=== PATIENT | female | born 1955 | race Caucasian/White ===

== ENCOUNTER 2024-01-22 12:43 | Emergency (ER) | payer OTHER ==
--- NOTE | 2024-01-22 13:20 | EDPHYS ---
Physician Documentation [facility] Name: Shaina Mora Age: 68 yrs Sex: Female : 1955 Arrival Date: 01/22/2024 Time: 12:43 Bed Treatment Private MD: ED Physician Manuel Chow HPI: 01/21 13:21 This 68 yrs old Female presents to ER via Ambulatory with complaints of Wound Infection sb4 - neck and leg. 13:23 patient reports a wound on her left posterior neck that has been there for a few weeks. sb4 her daughter states that she has been picking at it a lot and it appears to have become infected. she does have a history of MRSA, anxiety/depression, and possible excoriation disorder. states she has not had her zoloft in 2 weeks because the pharmacy has been closed. denies any known fever or chills. Historical: - Allergies: 13:10 NO NARCOTIC MEDS; ld1 - PMHx: 13:10 Anxiety; Depressive disorder; Mitral valve prolapse; ld1 13:11 MRSA; ld1 - Immunization history:: Adult Immunizations up to date. - Infectious Disease History:: MRSA (w/in 1 year), . - Social history:: Smoking status: Patient/guardian denies using tobacco, the patient reports quitting approximately 5 years ago, Patient/guardian denies using alcohol. ROS: 13:23 Constitutional: Negative for fever, chills, and weight loss, sb4 13:23 Skin: Positive for cellulitis, of the left posterior aspect of neck, 13:23 All other systems are negative, Exam: 13:23 Constitutional: This is a well developed, well nourished patient who is awake, alert, sb4 and in no acute distress. Head/Face: Normocephalic, atraumatic. Eyes: Extra-ocular motions intact. Periorbital areas with no swelling, redness, or edema. ENT: Mucous membranes moist. 13:23 Skin: large superficial open wound left posterior neck with mild purulence and surrounding cellulitis. MDM: 13:12 Patient medically screened. sb4 13:23 Data reviewed: vital signs, nurses notes, and as a result, I will discharge patient. sb4 Counseling: I had a detailed discussion with the patient and/or guardian regarding the historical points, exam findings, and any diagnostic results supporting the discharge/admit diagnosis, the need for outpatient follow up, for definitive care, to return to the emergency department if symptoms worsen or persist or if there are any questions or concerns that arise at home. 01/21 13:19 Order name: Wound Care; Complete Time: 14:04 sb4 01/21 13:19 Order name: Wound dressing; Complete Time: 14:04 sb4 Administered Medications: 13:50 Drug: Clindamycin PO 300 mg PO once Route: PO; hb Disposition: 14:36 I was immediately available on-site in the Emergency Department for consultation in the ms3 care of the patient. Disposition Summary: 01/22/24 13:20 Discharge Ordered Notes: Location: Home sb4 Problem: an ongoing problem sb4 Symptoms: are unchanged sb4 Condition: Stable sb4 Diagnosis - Cellulitis of neck sb4 - Excoriation (skin-picking) disorder sb4 Followup: sb4 - With: Emergency Department - When: As needed - Reason: Fever > 102 F, Worsening of condition Discharge Instructions: - Discharge Summary Sheet sb4 - Cellulitis, Adult sb4 - Wound Care, Adult sb4 - Skin-Picking Disorder sb4 Forms: - Antibiotic Education sb4 - Patient Portal Instructions sb4 - Leadership Thank You Letter sb4 Prescriptions: - Clindamycin HCl 300 mg Oral Capsule - take 1 capsule ORAL route every 6 hours for 10 days; 40 capsule; Refills: 0, sb4 Product Selection Permitted Signatures: Marilia Noe RN RN Manuel Chow DO DO dc3 Hailee Chow RN RN ld1 Lissy Peraza PA-C PA-C sb4 Corrections: (The following items were deleted from the chart) 13:25 13:10 Infectious Disease History: Denies. ld1 ld1
--- NOTE | 2024-01-22 13:20 | ER ---
Nurse's Notes [facility] Name: Shaina Mora Age: 68 yrs Sex: Female : 1955 Arrival Date: 01/22/2024 Time: 12:43 Bed Treatment Private MD: Diagnosis: Cellulitis of neck;Excoriation (skin-picking) disorder Presentation: 01/21 13:09 Chief complaint: Patient states: Wound to back of neck and WEI legs. "I have a skin ld1 picking disorder.". Coronavirus screen: At this time, the client does not indicate any symptoms associated with coronavirus-19. Ebola Screen: No symptoms or risks identified at this time. Risk Assessment: Do you want to hurt yourself or someone else? Patient reports no desire to harm self or others. Onset of symptoms was January 22, 2024. 13:09 Method Of Arrival: Ambulatory ld1 13:09 Acuity: REID 3 ld1 Triage Assessment: 13:11 General: Appears in no apparent distress. comfortable, Behavior is calm, cooperative, ld1 appropriate for age. Pain: Denies pain. EENT: No signs and/or symptoms were reported regarding the EENT system. Neuro: Level of Consciousness is awake, alert, obeys commands, Oriented to person, place, time, situation, Appropriate for age. Cardiovascular: Capillary refill < 3 seconds Patient's skin is warm and dry. Respiratory: Airway is patent Respiratory effort is even, unlabored. GI: Abdomen is flat, non-distended. : No signs and/or symptoms were reported regarding the genitourinary system. Derm: Wound noted base of the skull. Musculoskeletal: No signs and/or symptoms reported regarding the musculoskeletal system. Historical: - Allergies: 13:10 NO NARCOTIC MEDS; ld1 - PMHx: 13:10 Anxiety; Depressive disorder; Mitral valve prolapse; ld1 13:11 MRSA; ld1 - Immunization history:: Adult Immunizations up to date. - Infectious Disease History:: MRSA (w/in 1 year), . - Social history:: Smoking status: Patient/guardian denies using tobacco, the patient reports quitting approximately 5 years ago, Patient/guardian denies using alcohol. ED Course: 12:47 Patient arrived in ED. ra3 13:00 Lissy Per[facility]. sb4 13:00 Manuel Chow DO is Attending Physician. sb4 13:10 Triage completed. ld1 13:11 Arm band placed on right wrist. ld1 Administered Medications: 13:50 Drug: Clindamycin PO 300 mg PO once Route: PO; hb Outcome: 13:20 Discharge ordered by . sb4 14:04 Patient left the ED. hb Signatures: Marilia Noe RN RN Hailee Chow RN RN ld1 Lissy Peraza PA-C PA-C sb4 Elsi Howell ra3 Corrections: (The following items were deleted from the chart) 13:25 13:10 Infectious Disease History: Denies. ld1 ld1
== END 2024-01-22 14:04 | disposition home or self-care (01) ==
LOC: ER 12:43
DX: L03.221 Cellulitis of neck (principal); F42.4 Excoriation (skin-picking) disorder
CPT/HCPCS: 99282

== ENCOUNTER 2025-02-06 09:25 | Emergency (ER) | payer OTHER ==
--- NOTE | 2025-02-06 10:51 | RAD REPORT ---
EXAMINATION: Head C Spine Mpr Wo Con CLINICAL INDICATION: Female, 69 years old. fall, bruising, neck pain TECHNIQUE: Axial CT images from the skull base to the vertex without intravenous contrast. Axial CT i mages through the cervical spine were obtained without intravenous contrast. Sagittal and coronal reformatted images were created from the data set. Coronal and sagittal reformatted images were creat ed from the data set. One or more of the following dose reduction techniques were used: Automated exposure control, adjustment of the mA and/or kV according to patient size, and/or iterative reconstr uction. Unless otherwise specified, incidental findings do not require dedicated imaging follow-up. [id number]. COMPARISON: No prior exams FINDINGS: Head: INTRACRANIAL: No acute intracranial hemorrhage. No acute large vascular territory infarct. No hydroce phalus. No mass effect or midline shift. No significant white matter disease. VASCULATURE: No visualized abnormalities in the arteries or dural venous sinuses. SCALP/SKULL: No calvarial fracture identified. No acute soft tissue abnormality. SINUSES: The visualized paranasal sinuses are mostly clear. No significant mastoid fluid. Cervical spine: ALIGNMENT: The cervical spine has normal alignment without scoliosis or spondylolisthesis. BONE: Vertebral body heights are maintained. No aggressive osseous lesions. DEGENERATIVE: Multilevel cervical spondylosis with evidence of bilateral neural foraminal narrowing. No high grade central spinal stenosis. Neural foraminal narrowing is most pronounced on the left at 4 5 and on the right at C5-6. SOFT TISSUE: Scarring at the lung apices. IMPRESSION: No acute intracranial abnormality. No acute fracture or traumatic malalignment of the cervical spine.
[2025-02-06 10:57] LABS: Absolute Lymphocytes (CBC) 1.0 K/uL (0.7-4.9); Hematocrit 31.7 % (36.0-45.0); Hemoglobin 10.4 g/dL (12.0-15.0); MCH 26.5 pg (27.0-35.0); MCHC 32.9 g/dL (32.0-36.0); MCV 80.5 fL (80-100); MPV 8.9 fL (7.6-11.3); Nucleated RBC Absolute Count 0.0 (0-0); Nucleated Red Blood Cells % 0.1 % (0-0); RBC Red Blood Cell Count 3.94 M/uL (3.86-4.86); White Blood Count 9.30 thou/uL (4.3-10.9)
--- NOTE | 2025-02-06 11:01 | RAD REPORT ---
EXAMINATION: Abdomen Pelvis Wo Contrast CLINICAL INDICATION: Female, 69 years old.fall, back pain TECHNIQUE: CT abdomen and pelvis was performed, without IV contrast, as per department protocol. Axia l, sagittal and coronal reconstructions were obtained. One or more of the following dose reduction techniques were used: Automated exposure control, adjustment of the mA and/or kV according to the pat ient size, and/or iterative reconstruction. Unless otherwise specified, incidental findings do not require dedicated imaging follow-up. [id number]. IV CONTRAST: Not administered. COMPARISON: No prior exams FINDINGS: The lack of intravenous contrast limits the sensitivity of this exam for evaluation of solid visceral organs, vascular structures, and retroperitoneum. LOWER CHEST: No acute process identified.No significant pericardial effusion. Mild circumferential th ickening of the distal esophagus which could reflect esophagitis. Trace pericardial effusion. UPPER GI: No significant abnormality. LIVER: No significant focal abnormality. GALLBLADDER/BILE DUCTS: No biliary ductal dilatation.? PANCREAS: No mass, ductal dilation, or griffin-pancreatic fluid. SPLEEN: Unremarkable. ADRENALS: No adrenal masses. KIDNEYS AND URETERS: No hydronephrosis.No suspicious renal mass.No renal calculi.No ureteral calculi. ABDOMINAL AORTA AND OTHER VESSELS: Moderate atherosclerotic changes without aortic aneurysm. PERITONEUM: No abnormal free fluid. No free air. LYMPH NODES: No pathologic lymphadenopathy. ABDOMINAL WALL: Unremarkable SMALL BOWEL/COLON: Small bowel has normal course and caliber. No colonic wall thickening or pericolon ic inflammatory changes. Moderate formed stool burden. URINARY BLADDER: Underdistended but grossly unremarkable. REPRODUCTIVE ORGANS: Uterus surgically absent. No adnexal abnormality. MUSCULOSKELETAL: Screws traverse the right femoral neck. No acute fracture identified. Few versus chr onic left L4 transverse process fracture. ADDITIONAL FINDINGS: None. IMPRESSION: No evidence of significant trauma. No acute findings identified. Incidental findings as noted above.
[2025-02-06 11:07] LABS: Urine Microscopic Reflex YN NO UMIC
[2025-02-06 11:18] LABS: Anion Gap 7.8 mEq/L (5.0-15.0); BUN Blood Urea Nitrogen 22.0 mg/dL (7-18); Glucose Level 93.0 mg/dL (74-106)
[2025-02-06 11:20] LABS: Potassium 4.8 mEq/L (3.5-5.1)
[2025-02-06 11:43] LABS: PT Prothrombin Time 11.5 SECONDS (10-13.0); PTT, Activated Partial Thromb 28.7 SECONDS (27.2-37.4); Protime INR 1.02
--- NOTE | 2025-02-06 11:59 | EDPHYS ---
Physician Documentation [facility] Name: Shaina Mora Age: 69 yrs Sex: Female : 1955 Arrival Date: 02/06/2025 Time: 09:25 Bed 2 Private MD: ED Physician Lex Mancia HPI: 02/06 10:34 This 69 yrs old Female presents to ER via Wheelchair with complaints of Low Back Pain. rn 10:34 Patient and family report low back pain. Patient states low back pain worse since rn yesterday. Has chronic back pain. Has multiple falls and has had known herniated disks in the past. Patient states he fell about a week ago striking head. Does not report immediate back pain following that fall. Pain did not worsen until yesterday. No bowel or bladder issues. No fever or chills.. Historical: - Allergies: 10:12 NO NARCOTIC MEDS; dd2 - PMHx: 10:12 Anxiety; depressive disorder; mitral valve prolapse; MRSA; Diverticulitis; SYSTEMIC dd2 LUPUS; Osteoporosis; Hypothyroidism; DRUG USE; - PSHx: 10:12 Thyroidectomy; BLADDER SUSPENSION; dd2 - Immunization history:: Adult Immunizations unknown. - Infectious Disease History:: Denies. - Social history:: Smoking status: Patient denies any tobacco usage or history of. - Family history:: not pertinent. - Hospitalizations: : No recent hospitalization is reported. ROS: 10:34 Constitutional: Negative for fever, chills, and weight loss, Neck: Negative for injury, rn pain, and swelling, Cardiovascular: Negative for chest pain, palpitations, and edema, Respiratory: Negative for shortness of breath, cough, wheezing, and pleuritic chest pain, Abdomen/GI: Negative for abdominal pain, nausea, vomiting, diarrhea, and constipation, Back: Positive for back pain MS/Extremity: Negative for injury and deformity, Skin: Negative for injury, rash, and discoloration, Neuro: Negative for headache, weakness, numbness, tingling, and seizure, Exam: 10:34 Constitutional: This is a well developed, well nourished patient who is awake, alert, rn and in no acute distress. Head/Face: Normocephalic, healing ecchymosis that appears 1 week old to the left zygoma and inferior orbital region. Cardiovascular: Regular rate and rhythm. No pulse deficits. Respiratory: No increased work of breathing, no retractions or nasal flaring. Abdomen/GI: Soft, non-tender Skin: Multiple excoriations to the neck and face with evidence of patient picking at skin. No evidence of cellulitis or fluctuance noted. MS/ Extremity: Pulses equal, no cyanosis. Neurovascular intact. Full, normal range of motion. Equal circumference. Neuro: Awake and alert, GCS 15 Vital Signs: 10:09 BP 118 / 55; Pulse 72; Resp 16; Temp 97.8; Pulse Ox 96% on R/A; Weight 76 kg; Pain 9/10;dd2 12:35 BP 124 / 65; Pulse 74; Resp 15; Pulse Ox 96% ; bp 10:09 Pain Scale: Adult dd2 [place] Coma Score: 10:19 Eye Response: spontaneous(4). Motor Response: obeys commands(6). Verbal Response: dd2 oriented(5). Total: 15. MDM: 09:34 Medical Screening Exam initiated rn 11:57 Differential diagnosis: Spinal fracture, acute back pain, muscle spasm, herniated disc, rn radiculopathy, head injury. Data reviewed: vital signs, nurses notes, lab test result(s), radiologic studies, CT scan, and as a result, I will discharge patient. Care significantly affected by the following chronic conditions: Chronic back pain, lupus, depression. Counseling: I had a detailed discussion with the patient and/or guardian regarding the historical points, exam findings, and any diagnostic results supporting the discharge/admit diagnosis, lab results, radiology results, the need for outpatient follow up, to return to the emergency department if symptoms worsen or persist or if there are any questions or concerns that arise at home. Special discussion: I discussed with the patient/guardian in detail that at this point there is no indication for admission to the hospital. It is understood, however, that if the symptoms persist or worsen the patient needs to return immediately for re-evaluation. Based on the history and exam findings, there is no indication for further emergent testing or inpatient evaluation. I discussed with the patient/guardian the need to see the back specialist for further evaluation of the symptoms. I discussed with the patient/guardian the need to see the primary care provider for further evaluation of the symptoms. ED course: CT shows possible subacute spinous transverse process fracture of lumbar spine. Patient fell about a week ago. Could explain patient's back pain. Could also just be aggravated chronic back pain. No other acute findings to suggest need for inpatient admission at this time. Recommend [id number] medication, heating pad and follow-up with PCP and back specialist. I have personally reviewed all of the results, including but not limited to imaging deemed necessary to safely discharge this patient at this time. All results given to and printed out for patient. I personally went over all the results with the patient and answered all questions. Patient will follow-up with PCP and or specialist as discussed. Return precautions given and understood.. 02/06 10:19 Order name: CBC with Diff; Complete Time: 11: rn 02/06 10:19 Order name: Basic Metabolic Panel; Complete Time: 11: 02/06 10:19 Order name: Protime (+inr); Complete Time: 11: 02/06 10:19 Order name: Ptt, Activated; Complete Time: 11: 02/06 10:19 Order name: UA Rfx Amari Cult if indicated; Complete Time: 11: rn 02/06 10:19 Order name: CT Abd/Pelvis - Without Contrast; Complete Time: 11: rn 02/06 10:19 Order name: CT Head C Spine; Complete Time: 11:02 rn Administered Medications: No medications were administered Disposition Summary: 02/06/25 11:59 Discharge Ordered Notes: Location: Home rn Problem: new rn Symptoms: have improved rn Condition: Stable rn Diagnosis - Subacute transverse process fracture of lumbar vertebrae rn Followup: rn - With: Private Physician - When: As needed - Reason: Recheck today's complaints, Re-evaluation by your physician Discharge Instructions: - Discharge Summary Sheet rn - Transverse Process Fracture rn Forms: - Medication Reconciliation Form rn - Antibiotic furniture mechanic - Prescription Opioid Use rn - Patient Portal Instructions rn - Leadership Thank You Letter rn Signatures: Dispatcher [employer] Lex Martin MD MD rn DAVIS, DIANA, RN RN dd2 Corrections: (The following items were deleted from the chart) 12:01 10:19 IV Saline Lock ordered. rn dd2
--- NOTE | 2025-02-06 11:59 | ER ---
Nurse's Notes [facility] Name: Shaina Mora Age: 69 yrs Sex: Female : 1955 Arrival Date: 02/06/2025 Time: 09:25 Bed 2 Private MD: Diagnosis: Subacute transverse process fracture of lumbar vertebrae Presentation: 02/06 10:09 Chief complaint: Patient states: LT OUTER EAR PAIN FOR UNKNOWN AMOUNT OF TIME. DAUGHTER dd2 REPORTS THAT PT PICKS AT HER EAR AND CONTINUES TO CREATE WOUNDS. PT ALSO REPORTS LOW BACK PAIN FOR MONTHS AND STERNAL PAIN FROM A FRACTURE MONTHS AGO. Coronavirus screen: At this time, the client does not indicate any symptoms associated with coronavirus-19. Ebola Screen: No symptoms or risks identified at this time. Initial Sepsis Screen: Does the patient meet any 2 criteria? No. Patient's initial sepsis screen is negative. Does the patient have a suspected source of infection? No. Patient's initial sepsis screen is negative. Risk Assessment: Do you want to hurt yourself or someone else? Patient reports no desire to harm self or others. Onset of symptoms is unknown. 10:09 Method Of Arrival: Wheelchair dd2 10:09 Acuity: REID 3 dd2 Triage Assessment: 10:12 General: Appears in no apparent distress. uncomfortable, Behavior is calm, cooperative, dd2 appropriate for age. Pain: Complains of pain in pinna of left ear and low back area. EENT: Pinna SCABBED WOUND. Neuro: Level of Consciousness is awake, alert, obeys commands, Oriented to person, place, time, situation, Appropriate for age PT FORGETFUL . Cardiovascular: No deficits noted. Respiratory: No deficits noted. Airway is patent Respiratory effort is even, unlabored, Respiratory pattern is regular, symmetrical. GI: No deficits noted. No signs and/or symptoms were reported involving the gastrointestinal system. : No deficits noted. No signs and/or symptoms were reported regarding the genitourinary system. Derm: Wound noted pinna of left ear Wound is SCABBED WOUND. Musculoskeletal: Circulation, motion, and sensation intact. Range of motion: intact in all extremities, Reports pain in low back area. Historical: - Allergies: 10:12 NO NARCOTIC MEDS; dd2 - PMHx: 10:12 Anxiety; depressive disorder; mitral valve prolapse; MRSA; Diverticulitis; SYSTEMIC dd2 LUPUS; Osteoporosis; Hypothyroidism; DRUG USE; - PSHx: 10:12 Thyroidectomy; BLADDER SUSPENSION; dd2 - Immunization history:: Adult Immunizations unknown. - Infectious Disease History:: Denies. - Social history:: Smoking status: Patient denies any tobacco usage or history of. - Family history:: not pertinent. - Hospitalizations: : No recent hospitalization is reported. Screenin:19 [facility] ED Fall Risk Assessment (Adult) History of falling in the last 3 months, dd2 including since admission Yes- single mechanical fall (1 pt) Confusion or Disorientation No (0 pts) Intoxicated or Sedated No (0 pts) Impaired Gait No (0 pts) Mobility Assist Device Used Yes (1 pt) Altered Elimination No (0 pt) Score/Fall Risk Level 0 - 2 = Low Risk Oriented to surroundings, Maintained a safe environment, Educated pt \T\ family on fall prevention, incl call for assistance when getting out of bed, Assessed \T\ reinforced patient's understanding of fall precautions, Hourly rounding (assess needs \T\ fall precautionary measures) done, Used ambulatory aids as needed (educated on \T\ assisted with). Abuse screen: Denies threats or abuse. Denies injuries from another. Nutritional screening: No deficits noted. Tuberculosis screening: No symptoms or risk factors identified. Assessment: 10:19 Reassessment: SEE TRIAGE ASSESSMENT FOR FULL ASSESSMENT. dd2 Vital Signs: 10:09 BP 118 / 55; Pulse 72; Resp 16; Temp 97.8; Pulse Ox 96% on R/A; Weight 76 kg; Pain 9/10;dd2 12:35 BP 124 / 65; Pulse 74; Resp 15; Pulse Ox 96% ; bp 10:09 Pain Scale: Adult dd2 [place] Coma Score: 10:19 Eye Response: spontaneous(4). Motor Response: obeys commands(6). Verbal Response: dd2 oriented(5). Total: 15. ED Course: 09:30 Patient arrived in ED. im 09:34 Lex Mancia MD is Attending Physician. rn 09:53 Roberto Mahoney RN is Primary Nurse. bp 10:12 Triage completed. dd2 10:12 Arm band placed on right wrist. dd2 10:19 Patient has correct armband on for positive identification. Bed in low position. Call dd2 light in reach. Side rails up X2. Client placed on continuous cardiac and pulse oximetry monitoring. NIBP monitoring applied. Door closed. Noise minimized. Warm blanket given. Pillow given. Verbal reassurance given. 10:19 No provider procedures requiring assistance completed. Patient maintains SpO2 dd2 saturation greater than 95% on room air. 10:33 CT Abd/Pelvis - Without Contrast In Process Unspecified. EDMS 10:33 CT Head C Spine In Process Unspecified. EDMS 10:54 Basic Metabolic Panel Sent. dd2 10:54 CBC with Diff Sent. dd2 12:35 Patient did not have IV access during this emergency room visit. bp Administered Medications: No medications were administered Medication: 10:19 VIS not applicable for this client. dd2 Outcome: 11:59 Discharge ordered by . rn 12:35 Discharged to home ambulatory, with family, bp 12:35 Condition: stable 12:35 Discharge instructions given to patient, family, Instructed on discharge instructions, follow up and referral plans. Demonstrated understanding of instructions, follow-up care, 12:35 Patient left the ED. bp Signatures: Dispatcher [employer] EDMS Lex Mancia MD MD rn Peltier, Brian RN RN bp Maria Paige DIANA RN RN dd2
[2025-02-06 12:41] VITALS: TEMP 97.8; O2SAT 96
[2025-02-06 12:43] VITALS: BP 124/65
== END 2025-02-06 12:35 | disposition home or self-care (01) ==
LOC: ER 09:25
DX: S32.009A Unspecified fracture of unspecified lumbar vertebra, initial encounter for closed fracture (principal); W18.30XA Fall on same level, unspecified, initial encounter
CPT/HCPCS: 36415; 70450; 72125; 74176; 80048; 81003; 85025; 85610; 85730; 99283

== ENCOUNTER 2025-02-08 14:17 | Emergency (ER) | payer OTHER ==
--- NOTE | 2025-02-08 15:52 | RAD REPORT ---
EXAMINATION: ONE VIEW CHEST XR CLINICAL INDICATION: Female, 69 years old.,fall TECHNIQUE: Frontal chest projection is submitted. Examination is limited by patient positioning and t echnique. COMPARISON: No prior exam. FINDINGS: The lungs are well inflated. Perihilar streaky opacities and probable chronic interstitial opacities. No pneumothorax or sizable effusion. Mild cardiomegaly. Mediastinal contours are unremarkable. IMPRESSION: Findings suggestive of chronic obstructive lung disease, likely with exacerbation.
[2025-02-08 16:07] LABS: Absolute Lymphocytes (CBC) 0.9 K/uL (0.7-4.9); Hematocrit 30.0 % (36.0-45.0); Hemoglobin 10.0 g/dL (12.0-15.0); MCH 26.4 pg (27.0-35.0); MCHC 33.2 g/dL (32.0-36.0); MCV 79.6 fL (80-100); MPV 9.1 fL (7.6-11.3); Nucleated RBC Absolute Count 0.0 (0-0); Nucleated Red Blood Cells % 0.1 % (0-0); RBC Red Blood Cell Count 3.76 M/uL (3.86-4.86); White Blood Count 9.90 thou/uL (4.3-10.9)
[2025-02-08 16:16] LABS: PT Prothrombin Time 11.5 SECONDS (10-13.0); PTT, Activated Partial Thromb 36.4 SECONDS (27.2-37.4); Protime INR 1.02
[2025-02-08 16:19] LABS: METHAMPHETAM NEGATIVE (NEGATIVE); THC Cannibis NEGATIVE (NEGATIVE)
[2025-02-08 16:32] LABS: ALT/SGPT 22 U/L (13-56); AST/SGOT 31 U/L (15-37); Albumin 3.4 g/dL (3.4-5.0); Albumin/Globulin Ratio 0.8 (1.1-1.8); Alkaline Phosphatase 128 U/L (45-117); Anion Gap 9.7 mEq/L (5.0-15.0); BUN Blood Urea Nitrogen 16 mg/dL (7-18); Globulin 4.4 g/dL (2.3-3.5); Glucose Level 85 mg/dL (74-106); Magnesium 2.4 mg/dL (1.6-2.4); Potassium 3.7 mEq/L (3.5-5.1); Troponin High Sensitivity 6.2 pg/mL (<58.9)
[2025-02-08 16:33] LABS: Bilirubin Indirect, Calculated 0.1 mg/dL (0.2-0.8)
--- NOTE | 2025-02-08 16:57 | RAD REPORT ---
EXAM: CT brain without contrast HISTORY: fall COMPARISON: None TECHNIQUE: Multiple contiguous axial images were obtained and a CT of the brain without contrast. Sag ittal and coronal reformats were performed. FINDINGS: No evidence of hydrocephalus, intracranial hemorrhage, or extra-axial fluid collection. The brain is normal in morphology. The calvarium is intact. The visualized paranasal sinuses and mastoid air cells are essentially clear . IMPRESSION: No evidence of acute intracranial abnormality. EXAM: CT of the cervical spine without contrast HISTORY: fall COMPARISON: None TECHNIQUE: Multiple contiguous axial images were obtained in a CT of the cervical spine without contr ast. Sagittal and coronal reformats were performed. FINDINGS: The vertebral bodies demonstrate normal height and alignment. No evidence of acute fracture or subluxation.. Mild to moderate multilevel degenerative changes are present. No prevertebral soft tissue swelling is seen. The posterior facets are well aligned. Normal alignment of the skull base with the cervical spine is seen. Lung apices show interlobular septal thickening and central predominant groundglass opacities IMPRESSION: No evidence of acute osseous abnormality of the cervical spine. Mild to moderate multilevel degenerative changes. Central predominant pulmonary interstitial prominence and groundglass opacification, could relate to fibrotic changes or mild central edema.
--- NOTE | 2025-02-08 17:11 | ER ---
Nurse's Notes [facility] Name: Shaina Mora Age: 69 yrs Sex: Female : 1955 Arrival Date: 02/08/2025 Time: 14:17 Bed 16 Private MD: Diagnosis: Suicidal ideations Presentation: 02/08 14:38 Chief complaint: EMS states: CALLED TO DR. QUIÑONES'S OFFICE DUE TO PATIENT HAVING cm10 SUICIDAL THOUGHTS. PT STATES THAT THIS TIME SHE STILL CONTINUES TO FEEL SUICIDAL BUT DOES NOT HAVE A PLAN. PT STATES "I COULD NEVER GO THROUGH WITH IT." PT CURRENTLY COMPLAINING OF PAIN TO HER HEAD AND STERNUM. Coronavirus screen: Client denies travel out of the [place] in the last 14 days. Ebola Screen: Patient denies travel to an Ebola-affected area in the 21 days before illness onset. Initial Sepsis Screen: Does the patient meet any 2 criteria? No. Patient's initial sepsis screen is negative. Does the patient have a suspected source of infection? No. Patient's initial sepsis screen is negative. Risk Assessment: Do you want to hurt yourself or someone else? Patient reports desire/thoughts of hurting themselves or someone else. Provider notified. Onset of symptoms was February 08, 2025. 14:56 Method Of Arrival: EMS: [facility] cm10 14:56 Acuity: REID 2 cm10 Triage Assessment: 14:45 General: Appears in no apparent distress. comfortable, Behavior is calm, cooperative. cm10 Neuro: No deficits noted. Level of Consciousness is awake, alert, obeys commands, Oriented to person, place, time, situation, Appropriate for age. Respiratory: No deficits noted. Airway is patent Respiratory effort is even, unlabored, Respiratory pattern is regular, symmetrical. Musculoskeletal: No deficits noted. Range of motion: intact in all extremities. Historical: - Allergies: 14:59 NO NARCOTIC MEDS; cm10 - Home Meds: 14:59 Lexapro Oral [Active]; Zoloft 100 mg Oral tablet 1 tab daily [Active]; trazodone 100 mg cm10 Oral tablet 1 tab every day at bedtime [Active]; levothyroxine oral [Active]; Hydroxyzine Oral [Active]; - PMHx: 14:59 Anxiety; depressive disorder; Diverticulitis; Drug use; Hypothyroidism; mitral valve cm10 prolapse; MRSA; Osteoporosis; SYSTEMIC LUPUS; - PSHx: 14:59 bladder suspension; Thyroidectomy; cm10 - Immunization history:: Adult Immunizations up to date. - Infectious Disease History:: Denies. - Social history:: Smoking status: Patient denies any tobacco usage or history of. Screenin:57 [facility] ED Fall Risk Assessment (Adult) History of falling in the last 3 months, cm10 including since admission No falls in past 3 months (0 pts) Confusion or Disorientation No (0 pts) Intoxicated or Sedated No (0 pts) Impaired Gait No (0 pts) Mobility Assist Device Used No (0 pt) Altered Elimination No (0 pt) Score/Fall Risk Level 0 - 2 = Low Risk Oriented to surroundings, Maintained a safe environment, Hourly rounding (assess needs \\T\\ fall precautionary measures) done. Abuse screen: Denies threats or abuse. Denies injuries from another. Nutritional screening: No deficits noted. Tuberculosis screening: No symptoms or risk factors identified. Assessment: 16:45 Reassessment: Patient appears in no apparent distress at this time. Patient and/or cm10 family updated on plan of care and expected duration. Pain level reassessed. Patient is alert, oriented x 3, equal unlabored respirations, skin warm/dry/pink. 18:45 Reassessment: Patient appears in no apparent distress at this time. Patient and/or cm10 family updated on plan of care and expected duration. Pain level reassessed. Patient is alert, oriented x 3, equal unlabored respirations, skin warm/dry/pink. 19:00 Reassessment: Patient appears in no apparent distress at this time. No changes from cp4 previously documented assessment. Patient and/or family updated on plan of care and expected duration. Pain level reassessed. Patient is alert, oriented x 3, equal unlabored respirations, skin warm/dry/pink. 21:42 General: received report from lala ko, all questions answered. kt5 21:48 General: Appears unkempt, Behavior is agitated, inappropriate for age, uncooperative, kt5 sitter at bs. 21:54 General: per daughter pt stated that "she does not want to live anymore". kt5 22:51 General: report given to omega ko, all questions answered. kt5 22:59 Reassessment: Patient appears in no apparent distress at this time. Patient and/or kt5 family updated on plan of care and expected duration. Pain level reassessed. Patient is alert, oriented x 3, equal unlabored respirations, skin warm/dry/pink. sitter at bs Patient denies pain at this time. Patient states feeling better. 02/09 00:06 Reassessment: Patient appears in no apparent distress at this time. Patient and/or kt5 family updated on plan of care and expected duration. Pain level reassessed. Patient is alert, oriented x 3, equal unlabored respirations, skin warm/dry/pink. sitter at bs Patient denies pain at this time. Patient states feeling better. 01:06 Reassessment: Patient appears in no apparent distress at this time. Patient and/or kt5 family updated on plan of care and expected duration. Pain level reassessed. Patient is alert, oriented x 3, equal unlabored respirations, skin warm/dry/pink. sitter at bs Patient states feeling better. Patient states symptoms have improved. 02:33 Reassessment: Patient appears in no apparent distress at this time. Patient and/or kt5 family updated on plan of care and expected duration. Pain level reassessed. Patient is alert, oriented x 3, equal unlabored respirations, skin warm/dry/pink. pt sleeping, easily arousable, nad, sitter at bs, waiting transfer to [facility] facility Patient states feeling better. Patient states symptoms have improved. 03:39 Reassessment: Patient appears in no apparent distress at this time. No changes from kt5 previously documented assessment. Patient and/or family updated on plan of care and expected duration. Pain level reassessed. Patient is alert, oriented x 3, equal unlabored respirations, skin warm/dry/pink. sitter at bs Patient states feeling better. Patient states symptoms have improved. 04:59 Reassessment: Patient appears in no apparent distress at this time. Patient and/or kt5 family updated on plan of care and expected duration. Pain level reassessed. Patient is alert, oriented x 3, equal unlabored respirations, skin warm/dry/pink. sitter at bs Patient states feeling better. Patient states symptoms have improved. 05:00 General: pt up ambulating to rr w/o complications. kt5 06:08 Reassessment: Patient appears in no apparent distress at this time. Patient and/or kt5 family updated on plan of care and expected duration. Pain level reassessed. Patient is alert, oriented x 3, equal unlabored respirations, skin warm/dry/pink. SITTER AT BS Patient denies pain at this time. Patient states feeling better. Patient states symptoms have improved. 07:06 Reassessment: No changes from previously documented assessment. Patient and/or family kt5 updated on plan of care and expected duration. Pain level reassessed. Patient is alert, oriented x 3, equal unlabored respirations, skin warm/dry/pink. SITTER AT BS Patient denies pain at this time. Patient states feeling better. Patient states symptoms have improved. 07:12 General: REPORT GIVEN TO MASON KO, ALL QUESTIONS ANSWERED. kt5 07:15 Reassessment: Patient appears in no apparent distress at this time. Patient and/or db family updated on plan of care and expected duration. Pain level reassessed. Patient is alert, oriented x 3, equal unlabored respirations, skin warm/dry/pink. 08:00 Reassessment: Patient appears in no apparent distress at this time. Patient and/or db family updated on plan of care and expected duration. Pain level reassessed. Patient is alert, oriented x 3, equal unlabored respirations, skin warm/dry/pink. Pain: Denies pain. Neuro: Level of Consciousness is awake, alert, obeys commands, Oriented to person, place, time, situation. Respiratory: Airway is patent Respiratory effort is even, unlabored, Respiratory pattern is regular, symmetrical. 08:50 Reassessment: REPORT CALLED TO RUPERT AT [facility]. db 08:56 Reassessment: Patient appears in no apparent distress at this time. Patient and/or db family updated on plan of care and expected duration. Pain level reassessed. Patient is alert, oriented x 3, equal unlabored respirations, skin warm/dry/pink. 08:59 Reassessment: REPORT TO MORE FROM [facility]. [facility] WILL PROVIDE ACCEPTANCE. db 10:00 Reassessment: Patient appears in no apparent distress at this time. Patient and/or db family updated on plan of care and expected duration. Pain level reassessed. Patient is alert, oriented x 3, equal unlabored respirations, skin warm/dry/pink. EMS ARRIVAL FOR PT TRANSPORT. Psych: 02/08 14:38 [place] Suicide Severity Screening: In the past month, have you wished you were cm10 or wished you could go to sleep and not wake up? Patient responds "yes." Based off the client's responses additional C-SSRS screening is required. "In the past month, have you actually had any thoughts of killing yourself?" Patient responds "yes." Based off the client's response additional [place] suicide severity screening questions to be further documented on paper forms. "In your lifetime, have you ever done anything, started to do anything, or prepared to do anything to end your life?" Patient responds "no.". Subjective: Patient's mood is irritable, Delusions are denied, Hallucinations are denied Having thoughts of suicide. Denies suicidal plan. Objective: Patient is cooperative, irritable, Speech is normal, Affect is appropriate. Interventions: Removed personal items and placed in bag. Patient placed in hospital gown. Searched person for dangerous items. Urine collected and sent for urine drug test. Belonging list filled out. Safety Checks: Personal items have been removed. Door is open. No visitors are present at this time. Pt denies substance abuse. Commitment: Patient will be a voluntary commitment. Vital Signs: 14:56 BP 136 / 53; Pulse 80; Resp 16; Temp 97.6(O); Pulse Ox 98% on R/A; Weight 72.57 kg (R); cm10 Height 6 ft. 3 in. (R); Pain 10/10; 23:31 BP 133 / 69; Pulse 70; Resp 18; Pulse Ox 93% on R/A; oe 02/09 08:57 BP 124 / 62; Pulse 69; Resp 18; Temp 98; Pulse Ox 97% on R/A; db 10:00 BP 124 / 62; Pulse 68; Resp 18; Temp 98; Pulse Ox 98% ; db 02/08 14:56 Body Mass Index 20.00 (72.57 kg, 190.5 cm) cm10 02/08 14:56 Pain Scale: Adult cm10 Naima Coma Score: 02/08 14:55 Eye Response: spontaneous(4). Motor Response: obeys commands(6). Verbal Response: cp oriented(5). Total: 15. ED Course: 14:22 Patient arrived in ED. bd 14:23 Ryne Hanks PA-C is PHCP. cp 14:23 Ryne Mansfield MD is Attending Physician. cp 14:34 Mona Sutherland, RN is Primary Nurse. cm10 14:59 Triage completed. cm10 15:00 Patient has correct armband on for positive identification. Bed in low position. cm10 15:02 Arm band placed on right wrist. Patient placed in an exam room, on a stretcher. cm10 15:20 EKG done, by technical professional. reviewed by Ryne Hanks PA-C. ts3 15:21 XRAY Chest (1 view) In Process Unspecified. EDMS 15:27 CT Head C Spine In Process Unspecified. EDMS 16:00 Initial lab(s) drawn, by me, sent to lab. Inserted saline lock: 22 gauge in left hand, cm10 using aseptic technique. Blood collected. Flushed with 10 mL NS. 19:51 Lala Truong, RN is Primary Nurse. mf3 23:45 Warm blanket given. Diet: Patient given snack. Patient given water. oe 23:47 [facility] denied due to no beds. vk 02/09 00:26 Warm blanket given. Diet tray given. PO fluids given. Verbal reassurance given. sitter kt5 at bs. 01:46 UA Rfx Amari Cult if indicated Sent. kt5 04:45 Assisted to bathroom. oe 04:45 Warm blanket given. oe 08:33 faxed over all clinical's to several facilities ( [facility], [facility], [address], and [facility]. 09:03 [facility] with [facility] given approval for Dr Kamla Arenas. bc6 09:33 [facility] accepted transfer. bc6 09:50 Attending Physician role handed off by Ryne Mansfield MD rn 09:50 Lex Mancia MD is Attending Physician. rn 10:05 Provided Education on: DISCHARGE AND FOLLOWUP. db 10:05 No provider procedures requiring assistance completed. IV discontinued, intact, db bleeding controlled, No redness/swelling at site. Administered Medications: 02/08 22:13 Drug: LORazepam IM 1 mg IM once Route: IM; Site: right deltoid; kt5 02/09 00:07 Follow up: Response: No adverse reaction; Anxiety decreased kt5 09:21 Drug: HYDROcodone-acetaminophen PO 5 mg-325 mg 1 tabs PO once Route: PO; db 10:05 Follow up: Response: No adverse reaction db Medication: 02/08 18:57 VIS not applicable for this client. cm10 Outcome: 17:10 ER care complete, transfer ordered by . cecilia 02/09 09:51 ER care complete, transfer ordered by . rn 10:05 Transferred by ground EMS Transfer form completed. X-rays sent w/ patient. Note: db [place] NII 10:05 Condition: stable 10:05 Instructed on the need for transfer, 10:10 Patient left the ED. iw Signatures: Dispatcher [employer] EDMS Cesia Sandhu Irene RN RN iw Lex Mancia MD MD rn Ryne Hanks, FLIPC PAMaikel Guzmán cp, Danielle, RN RN db Saba White bc6 Mona Sutherland RN RN cm10 Brittney Daniels cp4 Koki Alberto Taisha ts3 Lala Truong RN RN mf3 Erika Rhoades, RN RN kt5 Corrections: (The following items were deleted from the chart) 02/08 16:01 14:56 Chief complaint: EMS states: CALLED TO DR. QUIÑONES'S OFFICE DUE TO PATIENT HAVING cm10 SUICIDAL THOUGHTS. PT STATES THAT THIS TIME SHE STILL CONTINUES TO FEEL SUICIDAL BUT DOES NOT HAVE A PLAN. PT STATES "I COULD NEVER GO THROUGH WITH IT." PT CURRENTLY COMPLAINING OF PAIN TO HER HEAD AND STERNUM. cm10 16: 14:56 Coronavirus screen: Client denies travel out of the [place] in the last 14 days. [id number] 16:01 14:56 Ebola Screen: Patient denies travel to an Ebola-affected area in the 21 days cm10 before illness onset. cm10 16: 14:56 Initial Sepsis Screen: Does the patient meet any 2 criteria? No. Patient's cm10 initial sepsis screen is negative. Does the patient have a suspected source of infection? No. Patient's initial sepsis screen is negative. cm10 16:01 14:56 Risk Assessment: Do you want to hurt yourself or someone else? Patient reports cm10 desire/thoughts of hurting themselves or someone else. Provider notified. cm10 16:01 14:56 Onset of symptoms was February 08, 2025 cm10 cm10 22:19 21:48 General: Appears unkempt, Behavior is agitated, inappropriate for age, kt5 uncooperative, kt5 02/09 06:50 04:59 Warm blanket given. oe oe 06:50 04:59 Assisted to bathroom. oe oe 09:08 08:59 Reassessment: REPORT TO [facility] FROM [facility]. db db 10:14 10:12 Transferred by ground EMS Transfer form completed. X-rays sent w/ patient. db db
--- NOTE | 2025-02-08 17:11 | EDPHYS ---
Physician Documentation [facility] Name: Shaina Mora Age: 69 yrs Sex: Female : 1955 Arrival Date: 02/08/2025 Time: 14:17 Bed 16 Private MD: ED Physician Lex Mancia HPI: 02/08 14:55 This 69 yrs old Female presents to ER via Unassigned with complaints of Depression, cp Suicidal Ideation and Recent Fall. 14:55 The patient or guardian reports swelling, tenderness, contusion. The complaints affect cp the left ear. Context of injury: resulted from a fall. Onset: The symptoms/episode began/occurred 2 day(s) ago. 14:55 Associated signs and symptoms: Loss of consciousness: This patient did not experience cp any loss of consciousness. Pertinent positives: headache, Pertinent negatives: vomiting, generalized weakness. 14:55 The patient presents to the emergency department with suicide ideation, but the patient cp has no formulated plan. Historical: - Allergies: 14:59 NO NARCOTIC MEDS; cm10 - Home Meds: 14:59 Lexapro Oral [Active]; Zoloft 100 mg Oral tablet 1 tab daily [Active]; trazodone 100 mg cm10 Oral tablet 1 tab every day at bedtime [Active]; levothyroxine oral [Active]; Hydroxyzine Oral [Active]; - PMHx: 14:59 Anxiety; depressive disorder; Diverticulitis; Drug use; Hypothyroidism; mitral valve cm10 prolapse; MRSA; Osteoporosis; SYSTEMIC LUPUS; - PSHx: 14:59 bladder suspension; Thyroidectomy; cm10 - Immunization history:: Adult Immunizations up to date. - Infectious Disease History:: Denies. - Social history:: Smoking status: Patient denies any tobacco usage or history of. ROS: 15:00 Constitutional: Negative for body aches, chills, fever, poor PO intake, cp 15:00 Cardiovascular: Negative for chest pain, cp 15:00 Neuro: Negative for altered mental status, 15:00 Psych: Positive for depression, suicidal ideation, 15:00 Respiratory: Negative for cough, shortness of breath, wheezing, cp 15:00 Eyes: Negative for injury, pain, redness, and discharge, cp 15:00 ENT: Positive for ear pain, 15:00 Abdomen/GI: Negative for abdominal pain, vomiting, diarrhea, constipation, 15:00 : Negative for urinary symptoms, 15:00 All other systems are negative, Exam: 15:05 Constitutional: The patient appears in no acute distress, alert, awake, cp non-diaphoretic, non-toxic, well developed, well nourished, 15:05 Head/face: Noted is contusion, that is superficial, of the left ear, ecchymosis, that cp is moderate, of the left ear, swelling, that is mild, of the left ear, Sinus tenderness, is not appreciated, 15:05 Eyes: Periorbital structures: appear normal, Pupils: equal, round, and reactive to light and accomodation, Extraocular movements: intact throughout, Conjunctiva: normal, no exudate, no injection, Sclera: no appreciated abnormality, Lids and lashes: appear normal, bilaterally, 15:05 ENT: External ear(s): are unremarkable, Nose: is normal, Mouth: Lips: moist, Oral mucosa: moist, Posterior pharynx: Airway: no evidence of obstruction, patent, 15:05 Neck: C-spine: vertebral tenderness, is not appreciated, crepitus, is not appreciated, ROM/movement: limited range of motion, is not appreciated, 15:05 Chest/axilla: Inspection: normal, Palpation: is normal, no crepitus, no tenderness, 15:05 Cardiovascular: Rate: normal, Rhythm: regular, Edema: is not appreciated, JVD: is not cp appreciated, 15:05 Respiratory: the patient does not display signs of respiratory distress, Respirations: normal, no use of accessory muscles, no retractions, labored breathing, is not present, Breath sounds: are clear throughout, no decreased breath sounds, no stridor, 15:05 Abdomen/GI: Inspection: abdomen appears normal, Palpation: abdomen is soft and non-tender, in all quadrants, 15:05 Back: pain, is absent, cp 15:05 Neuro: Orientation: to person, place \T\ time. Mentation: is normal, Motor: moves all fours, no focal deficits, 15:05 Psych: Patient has no thoughts/intents to harm self or others. Judgement / Insight is normal. Delusions/hallucinations are not present. 15:18 ECG was reviewed by the Attending Physician. cp Vital Signs: 14:56 BP 136 / 53; Pulse 80; Resp 16; Temp 97.6(O); Pulse Ox 98% on R/A; Weight 72.57 kg (R); cm10 Height 6 ft. 3 in. (R); Pain 10/; 23:31 BP 133 / 69; Pulse 70; Resp 18; Pulse Ox 93% on R/A; oe 02/09 08:57 BP 124 / 62; Pulse 69; Resp 18; Temp 98; Pulse Ox 97% on R/A; db 10:00 BP 124 / 62; Pulse 68; Resp 18; Temp 98; Pulse Ox 98% ; db 02/08 14:56 Body Mass Index 20.00 (72.57 kg, 190.5 cm) cm10 02/08 14:56 Pain Scale: Adult cm10 Naima Coma Score: 02/08 14:55 Eye Response: spontaneous(4). Motor Response: obeys commands(6). Verbal Response: cp oriented(5). Total: 15. MDM: 14:23 Medical Screening Exam initiated 22:15 I considered the following discharge prescriptions or medication management in the emergency department Medications were administered in the Emergency Department. See MAR. 22:15 Independent interpretation of the following test(s) in the Emergency Department EKG: See my EKG interpretation above. 02/09 09:50 Differential diagnosis: depression, Suicidal ideation. Data reviewed: vital signs, rn nurses notes, lab test result(s), EKG, radiologic studies, and as a result, I will admit patient. Consideration of Admission/Observation Patient was admitted/placed on observation. Escalation of care including admission/observation considered. Care significantly affected by the following chronic conditions: Anxiety, depression. Counseling: I had a detailed discussion with the patient and/or guardian regarding the historical points, exam findings, and any diagnostic results supporting the discharge/admit diagnosis, lab results, radiology results, the need for further work-up and treatment in the hospital, the need to transfer to another facility, [facility] does not immediately have the required specialist. Response to treatment: the patient's symptoms have mildly improved after treatment. ED course: Patient accepted for transfer to [facility]. Patient is stable for transfer.. 02/08 14:43 Order name: Basic Metabolic Panel; Complete Time: 16:50 cp 02/08 16:51 Interpretation: Normal except: CRE 1.03; GFR 58; CA 8.1. 02/08 14:43 Order name: CBC with Diff; Complete Time: 16:50 02/08 16:51 Interpretation: Normal except: RBC 3.76; HGB 10.0; HCT 30.0; MCV 79.6; MCH 26.4; RDW cp 15.6; LORI% 79.1; LYM% 9.3. 02/08 14:43 Order name: LFT's; Complete Time: 16:50 02/08 16:51 Interpretation: Normal except: ALK 128; IBILI, CALC 0.1; GLOB 4.4; A/G 0.8. 02/08 14:43 Order name: Magnesium; Complete Time: 16:50 02/08 17:09 Interpretation: Reviewed. 02/08 14:43 Order name: PT-INR; Complete Time: 16:50 02/08 16:52 Interpretation: Reviewed. 02/08 14:43 Order name: Troponin HS; Complete Time: 16:50 02/08 16:51 Interpretation: Reviewed. 02/08 14:43 Order name: Acetaminophen; Complete Time: 16:50 02/08 17:08 Interpretation: Reviewed. 02/08 14:43 Order name: ETOH Level; Complete Time: 16:50 02/08 14:43 Order name: Ptt, Activated; Complete Time: 16:50 02/08 14:43 Order name: Salicylate; Complete Time: 17:07 02/08 17:07 Interpretation: Reviewed. 02/08 14:43 Order name: Urine Drug Screen; Complete Time: 16:50 02/08 16:52 Interpretation: Normal except. 02/08 14:43 Order name: XRAY Chest (1 view); Complete Time: 15:54 02/08 15:54 Interpretation: Report review. 02/08 14:50 Order name: CT Head C Spine; Complete Time: 17:07 02/08 17:08 Interpretation: Reviewed report. 02/08 14:43 Order name: Cardiac monitoring; Complete Time: 21:12 02/08 14:43 Order name: EKG - Nurse/Tech; Complete Time: 15:20 02/08 14:43 Order name: IV Saline Lock; Complete Time: 16:07 02/08 14:43 Order name: Labs collected and sent; Complete Time: 16:07 02/08 14:43 Order name: O2 Per Protocol; Complete Time: 15:08 02/08 14:43 Order name: O2 Sat Monitoring; Complete Time: 15:08 02/08 14:43 Order name: Suicide Precautions; Complete Time: 15:08 cp 02/08 14:43 Order name: Suicide Screening ([place]); Complete Time: 16:08 02/08 14:56 Order name: Wound Care; Complete Time: 19:52 cp EC/24 15:18 Rate is 76 beats/min. Rhythm is regular. ME interval is normal. QRS interval is normal. cp QT interval is normal. T waves are Inverted in leads aVF, V3, V4, V5. Interpreted by me. Reviewed by me. Administered Medications: 22:13 Drug: LORazepam IM 1 mg IM once Route: IM; Site: right deltoid; kt5 02/09 00:07 Follow up: Response: No adverse reaction; Anxiety decreased kt5 09:21 Drug: HYDROcodone-acetaminophen PO 5 mg-325 mg 1 tabs PO once Route: PO; db 10:05 Follow up: Response: No adverse reaction db Disposition: 09:50 Co-signature as Attending Physician, Lex Mancia MD I agree with the assessment and rn plan of care. I reviewed the patient's care provided by Advanced Practice Provider \T\ agree w/ the diagnosis \T\ care plan. I personally saw the pt \T\ performed a substantive portion of the visit, incldng all aspects of the (History/Exam/Medical Decision Making). 02/10 01:08 Chart complete. cp Disposition Summary: 02/09/25 09:51 Transfer Ordered Notes: Transfer Location: Psych Facility(02/09/25 09:51) rn Reason: Higher level of care(02/09/25 09:51) rn Condition: Stable(02/09/25 09:51) rn Problem: new(02/09/25 09:51) rn Symptoms: have improved(02/09/25 09:51) rn Accepting Physician: (02/09/25 10:10) iw Diagnosis - Suicidal ideations rn Forms: - Medication Reconciliation Form rn - SBAR form rn Signatures: Dispatcher [employer] Donna Lemons RN RN iw Lex Mancia MD MD rn Page, Corey, PA-C PA-C cp Vero Blanca, RN RN db Mona Sutherland, RN RN cm10 Erika Rhoades, RN RN kt5 Corrections: (The following items were deleted from the chart) 02/08 14:44 14:44 BASIC METABOLIC PANEL+C.LAB.BRZ ordered. EDMS EDMS 14:44 14:44 CBC+H.LAB.BRZ ordered. EDMS EDMS 14:44 14:44 HEPATIC FUNCTION+C.LAB.BRZ ordered. EDMS EDMS 14:44 14:44 MAGNESIUM+C.LAB.BRZ ordered. EDMS EDMS 14:44 14:44 PROTIME (+INR)+COAG.LAB.BRZ ordered. EDMS EDMS 14:44 14:44 Troponin High Sensitivity+C.LAB.BRZ ordered. EDMS EDMS 14:44 14:44 ACETAMINOPHEN+C.LAB.BRZ ordered. EDMS EDMS 14:44 14:44 ETHANOL+C.LAB.BRZ ordered. EDMS EDMS 14:44 14:44 PTT, ACTIVATED+COAG.LAB.BRZ ordered. EDMS EDMS 14:44 14:44 SALICYLATE+C.LAB.BRZ ordered. EDMS EDMS 14:44 14:44 URINE DRUG SCREEN+UC.LAB.BRZ ordered. EDMS EDMS 14:44 14:44 Chest Single View+RAD.RAD.BRZ ordered. EDMS EDMS 17:10 17:10 UA Rfx Amari Cult if indicated+U.LAB.BRZ ordered. EDMS EDMS 02/09 09:51 02/08 17:10 doctor cp rn 02/09 09:51 02/08 17:10 Psych Facility cp rn 02/09 09:51 02/08 17:10 Higher level of care cp rn 02/09 09:51 02/08 17:10 Stable cp rn 02/09 09:51 02/08 17:10 new cp rn 02/09 09:51 02/08 17:10 have improved cp rn 02/09 09:51 02/08 17:10 Fall on same level from slipping, tripping and stumbling with subsequent rn striking against object cp 02/09 10:10 09:51 Dr. curtis iw
[2025-02-08] MEDS ORDERED: LORazepam 2 MG/ML VIAL ONE (22:00)
[2025-02-09] MEDS ORDERED: HYDROCODONE/APAP 5/325 MG TAB ONE (09:14)
[2025-02-09 10:34] VITALS: BP 124/62; TEMP 98; O2SAT 97
== END 2025-02-09 10:10 ==
LOC: ER 14:17
DX: R45.851 Suicidal ideations (principal); S00.432A Contusion of left ear, initial encounter; W18.30XA Fall on same level, unspecified, initial encounter
CPT/HCPCS: 36415; 70450; 71045; 72125; 80048; 80076; 80143; 80179; 80307; 82077; 83735; 84484; 85025; 85610; 85730; 93005; 96372; 99285

== ENCOUNTER 2025-03-06 19:55 | Emergency (ER) | payer OTHER ==
[~2025-03-06 19:55] MED LIST: WATER FOR INJ,STERILE 10 ML ONE; ZIPRASIDONE MESYLA 20 MG/VIAL IM ONE
[2025-03-06] MEDS ORDERED: IBUPROFEN 400 MG TAB ONE (20:33)
[2025-03-06] MEDS ORDERED: SMZ./TMP. 800/160 MG TABLET ONE (20:33)
[2025-03-06] MEDS ORDERED: DIAZEPAM 5 MG TABLET ONE (20:34)
[2025-03-06 21:30] LABS: METHAMPHETAM NEGATIVE (NEGATIVE); THC Cannibis NEGATIVE (NEGATIVE)
[2025-03-06 21:35] LABS: Absolute Lymphocytes (CBC) 2.0 K/uL (0.7-4.9); Hematocrit 28.6 % (36.0-45.0); Hemoglobin 8.9 g/dL (12.0-15.0); MCH 24.0 pg (27.0-35.0); MCHC 31.2 g/dL (32.0-36.0); MCV 76.9 fL (80-100); MPV 10.0 fL (7.6-11.3); Nucleated RBC Absolute Count 0.0 (0-0); Nucleated Red Blood Cells % 0.0 % (0-0); RBC Red Blood Cell Count 3.72 M/uL (3.86-4.86); White Blood Count 14.70 thou/uL (4.3-10.9)
[2025-03-06 21:40] LABS: Influenza A Ag Negative; Influenza B Ag Negative; SARS-CoV-2 Antigen Rapid Res Negative (Negative)
[2025-03-06 21:44] LABS: PT Prothrombin Time 12.5 SECONDS (10-13.0); PTT, Activated Partial Thromb 34.8 SECONDS (27.2-37.4); Protime INR 1.11
[2025-03-06 22:06] LABS: ALT/SGPT 17 U/L (13-56); AST/SGOT 25 U/L (15-37); Albumin 3.4 g/dL (3.4-5.0); Albumin/Globulin Ratio 0.8 (1.1-1.8); Alkaline Phosphatase 120 U/L (45-117); Anion Gap 10.7 mEq/L (5.0-15.0); BUN Blood Urea Nitrogen 22 mg/dL (7-18); Globulin 4.3 g/dL (2.3-3.5); Glucose Level 108 mg/dL (74-106); Potassium 3.7 mEq/L (3.5-5.1)
[2025-03-06 22:08] LABS: Bilirubin Indirect, Calculated 0.0 mg/dL (0.2-0.8)
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
[2025-03-07] MEDS ORDERED: TRAZODONE 50 MG TABLET ONE (00:45)
[2025-03-07 14:46] VITALS: TEMP 97.7
[2025-03-07 14:52] VITALS: BP 148/64; O2SAT 97
== END 2025-03-07 07:09 ==
LOC: ER 19:55
DX: R45.851 Suicidal ideations (principal); F32.A Depression, unspecified; S00.81XA Abrasion of other part of head, initial encounter; F42.4 Excoriation (skin-picking) disorder; Z11.52 Encounter for screening for COVID-19
CPT/HCPCS: 93005; 85025; 80048; 36415; 82550; 85610; 80076; 85730; 80307; 80143; 80179; 82077; 87428; J3486; 99285